=== PATIENT | female | born 1960 | race Caucasian/White ===

== ENCOUNTER → 2022-08-15 | Outpatient (CLI) | payer OTHER ==
--- NOTE | 2022-08-20 08:11 | MM ---
Reason for Exam: Screening (asymptomatic). Last mammogram was performed 5 year(s) and 2 month(s) ago. Patient History: Menarche at age 11. First Full-Term at age 25. Left ovary removed at age 30. Right ovary removed at age 30. Hysterectomy at age 30. Risk Values: Olive 5 year model risk: 1.8%. NCI Lifetime model risk: 7.2%. Prior Study Comparison: 08/31/2015 Bilateral MG diagnostic mammo w CAD MIGUEL - 2, [place]. 06/03/2017 Bilateral MG 3D screening mammo w/cad, [place]. Tissue Density: The breast tissue is heterogeneously dense. This may lower the sensitivity of mammography. Findings: Analyzed By CAD. There is no suspicious group of microcalcifications or new suspicious mass in either breast. Overall Assessment: Benign, BI-RAD 2 Management: Screening Mammogram of both breasts in 1 year. A clinical breast exam by your physician is recommended on an annual basis and results should be correlated with mammographic findings. Electronically signed and approved by: Osvaldo Otto M.D. Radiologis
== END | disposition home or self-care (01) ==
LOC: RADMAMWWP 07:21
PROVIDERS: ATTEND Family Medicine
DX: Z12.31 Encounter for screening mammogram for malignant neoplasm of breast (principal)
CPT/HCPCS: 77063; 77067

== ENCOUNTER → 2023-03-06 | Outpatient (CLI) | payer MEDICARE, OTHER ==
--- NOTE | 2023-03-06 11:59 | MR ---
EXAMINATION TYPE: MR lumbar spine wo con DATE OF EXAM: 03/06/2023 COMPARISON: None HISTORY: Lower back pain, LLE radiculopathy. TECHNIQUE: Multiplanar, multisequence images of the lumbar spine were acquired without IV contrast. FINDINGS: Lumbar segments are intact. No paraspinal masses are identified. Conus medullaris has a normal appe arance. Prominent right extrarenal pelvis. T12-L1: No herniation, protrusion or disc bulging. No canal stenosis is present. Foramina are paten t bilaterally. L1-L2: Tiny right central disc protrusion without significant effacement of the anterior thecal sac. No central canal stenosis. No neural foraminal stenosis. L2-L3: Tiny right central and left central disc protrusions without significant effacement of the ant erior thecal sac. No central canal stenosis. Mild left neural foramina stenosis. The right neural for amen is patent. L3-L4: No disc herniation or disc bulge. Ligament of flavum buckling with bilateral facet arthropathy contribute to minimal central canal stenosis. The neural foramina are patent bilaterally. L4-L5: Minimal grade 1 anterolisthesis of L4 on L5. Broad-based disc bulge with ligamentum flavum buc gill and bilateral facet arthropathy contributing to mild central canal stenosis. Mild bilateral michelle ral foraminal stenosis. L5-S1: Broad-based disc bulge with mild effacement of the intrathecal sac. Bilateral facet arthropath y and ligamentum flavum buckling. There is mild central canal stenosis. Mild bilateral neural foramin al stenosis. IMPRESSION: 1. Mild multilevel degenerative disease and facet arthropathy as described above. This is most pronou nced at L4-L5 and L5-S1. 2. Minimal grade 1 anterolisthesis L4 on L5.
== END | disposition home or self-care (01) ==
LOC: RADMRIMAIN 11:01
PROVIDERS: ATTEND Orthopaedic Surgery
DX: M47.26 Other spondylosis with radiculopathy, lumbar region (principal); M43.16 Spondylolisthesis, lumbar region
CPT/HCPCS: 72148

== ENCOUNTER → 2023-03-27 | Outpatient (CLI) | payer MEDICARE, OTHER ==
[2023-03-27 08:33] VITALS: BP 122/76; PULSE 65; RESP 15; TEMP 98.2
--- NOTE | 2023-03-27 14:49 | P.PAINPG ---
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 presents today w severe and chronic L LBP secondary to L Sacroiliitis for evaluation. Pt states pain level is provoked at 7 /10 in intensity, constant, localized in the L lower lumbar spine, achy, burning in character w shooting pain towards the L inner thigh. Pain is provoked by laying supine. Pain is alleviated by medications (Ibu), PT x 4 wks in Jan 2023, chiropractic treatments once every 2-3 mo x 1 yr which she is currently in, repositioning and rest. Oswestry axial pain score at 17. PMH: OA, GERD, Hyperlipidemia PSH: DENIES SH: Negative x3 FH: Non contributory All: See list Meds: See list REVIEW OF ORGAN SYSTEMS: CONSTITUTIONAL: No fevers or chills. No recent weight loss. NEUROLOGICAL: + numbness and tingling along the distal extremities. No seizure disorders or headaches. MUSCULOSKELETAL: + pain PSYCHIATRIC: Denies current depression or suicidal thoughts. Physical Examinations : Constitutional : Cooperative , not in acute distress . Neurologic : Cranial nerve II to XII intact. No focal neurological deficits. Psychiatric : alert & oriented x 3. Matching mood & appropriate affect. Judgment & insight intact. Musculoskeletal : Cervical Spine Motor strength in the deltoid and biceps: Normal right side. Normal Left side Motor strength biceps and the wrist extensors: Normal right side . Normal left side Motor strength in the triceps muscle: Normal right side. Normal left side Deep tendon reflexes: Normal at the biceps. Normal at Brachioradialis. Normal at triceps Vertebral body tenderness to deep palpation over Cervical facet loading test: positive bilaterally Spurling test: positive bilaterally Neck distraction test: positive bilaterally Giana sign: positive bilaterally Lumbar spine Motor strength lower extremities ,thigh and legs 5/5 Right side , 5/5 Left side Deep tendon reflexes : Normal Knee Jerk. Normal Ankle Jerk Vertebral body tenderness over He Test positive Lumbar facet Loading Test: positive Right / positive Left Range of motion of the lumbar spine Flexion 30 degrees, extension 10 degrees Straight Leg Raise test: Left/ Right positive at degree Mark test: positive right / positive left. Severe tenderness over the Sacroiliac joint on the Right / Left sides Gaenslen test: positive bilaterally Seated flexion test: positive bilaterally. Sacral spine : Severe tenderness over the Sacroiliac joint: right side / left side Range of motion: Flexion of the lumbar spine <60 degrees Range of motion: Extension of the lumbar spine <20 degrees Gaenslen's Test positive on L Mark test: positive right side / left side Thigh Thrust Test L positive Sacral Thrust Test Imaging: MRI noncontrast of the lumbar spine from 03/06/23 reviewed Assessment/ Plan : BL Sacroiliitis Recommendation of L SI injection. May need a series for optimal pain relief. Risks, benefits of procedure discussed and patient verbalized understanding. Admits to aspirin or anti- coagulant use or medical history of diabetes. Protocol for discontinuation/ continuation of medications kwasi procedure discussed. Minimal anesthesia provided, if clinically indicated, consisting of Versed and Fentanyl. All questions answered. I have spent greater than 30 minutes on patient care today. Dr Monae was available by phone for the evaluation of this patient. The time was used to review the medical records including relevant urine studies and Prescription history (MAPs), review of the available imaging, evaluation and examination of the patient, coordination of care with the medical staff and if applicable referring physicians, as well as creation of the medical record Controlled Substance Measures - Controlled Substance Measures Is patient prescribed a controlled substance at discharge?: No
== END ==
LOC: PNWHC3 07:38
PROVIDERS: ATTEND Specialist
DX: M46.1 Sacroiliitis, not elsewhere classified (principal); M54.50 Low back pain, unspecified; M47.26 Other spondylosis with radiculopathy, lumbar region; M19.90 Unspecified osteoarthritis, unspecified site; K21.9 Gastro-esophageal reflux disease without esophagitis; E78.5 Hyperlipidemia, unspecified
CPT/HCPCS: 99211

== ENCOUNTER 2023-04-15 07:31 | Day surgery (SDC) | payer MEDICARE, OTHER ==
[~2023-04-15 07:31] MED LIST: LACTATED RINGERS 1,000 ML IV SCH
[2023-04-15 07:55] VITALS: TEMP 97.2
[2023-04-15] MEDS ORDERED: ROPIVACAINE 5MG/ML 20ML VIAL ONE (08:24)
[2023-04-15] MEDS ORDERED: methylPREDNISolone ACETATE 40 MG/ML 1 ML VIAL ONE (08:24)
[2023-04-15] MEDS ORDERED: IOPAMIDOL M200 10 ML VIAL ONE (08:24)
--- NOTE | 2023-04-15 08:31 | P.PCN ---
Date of Procedure: 04/15/23 Procedure(s) Performed: Procedure= Left sacroiliac joints steroid injection under fluoroscopy guidance (fluoroscopy image stored on file in the radiology Department ) Preoperative diagnosis= 1-sacroiliitis 2-lumbar degenerative disc disease 3- lumbar facet arthropathy Postoperative diagnosis=Same as preop Diagnosis . Complication = none Condition= stable Anesthesia= local anesthesia with ropivacaine 0.5% 2 ml only Indication for the procedure= patient complaining of low back pain , examination was positive for severe tenderness over the sacroiliac joints bilaterally and patient diagnosed with sacroiliitis, for this reason she was good candidate for sacroiliac joint steroid injection. Description of the procedure= procedure risk and benefits discussed with the patient, including but not limited, risk of infection and bleeding, and ALLERGIC reaction to the medication and not complete pain relief and patient agreed with the preceding patient taken to the operating room, placed in prone position or standard monitors applied to the patient then after induction of anesthesia back prepped with chlorhexidine 3 times , Then the left sacroiliac joint steroid injection done under strict sterile technique local infiltration of the skin and subcu interstitial at the location of the left sacroiliac joint then a 22-gauge Quincke Needle advanced slowly under fluoroscopy time placed in the left sacroiliac joint, needle placement confirmed with AP and oblique and lateral view then after appropriate needle placement confirmed, with the AP and oblique and lateral then after negative aspiration Isovue 200 1 mL injected showed arthropathy of the left sacroiliac joint, and after negative aspiration 0.5% Ropivacaine 2 mL and 40 mg of Depo- Medrol injected in the left sacroiliac joint after negative aspiration patient tolerated the procedure well that any complications and she will follow up in clinic 3 weeks
[2023-04-15 08:51] VITALS: BP 115/74; PULSE 59; RESP 16
--- NOTE | 2023-04-15 20:22 | FL ---
EXAMINATION TYPE: FL guided pain mgmt statistic DATE OF EXAM: 04/15/2023 HISTORY: Fluoroscopy time Total dose area product (DAP) in uGy*m?, mGy*cm? (or similar): 0.39049 IMPRESSION: 1. Fluoroscopy time.
== END 2023-04-15 08:57 | disposition home or self-care (01) ==
LOC: ORPAIN 07:31
PROVIDERS: ATTEND Specialist
DX: M46.1 Sacroiliitis, not elsewhere classified (principal); M51.36 Other intervertebral disc degeneration, lumbar region; M47.816 Spondylosis without myelopathy or radiculopathy, lumbar region; Z88.2 Allergy status to sulfonamides
CPT/HCPCS: J1030; Q9966; J2795; G0260; 27096

== ENCOUNTER → 2023-05-08 | Outpatient (CLI) | payer MEDICARE, OTHER ==
[2023-05-08 08:38] VITALS: BP 128/69; PULSE 79; RESP 15; TEMP 98.2
--- NOTE | 2023-05-08 14:36 | P.PAINPG ---
Objective - Vital Signs Vital signs: Intake & Output 05/07/23 05/08/23 05/08/23 18:59 06:59 18:59 Weight 75.75 kg PQRS Measure Charge Sheet Comment: HISTORY OF PRESENT ILLNESS: 63 yr old female w at side presents today w severe and chronic L LBP secondary to DDD, spondylosis and facet arthropathy without myelopathy, L Sacroiliitis for evaluation. Pt states she experienced 10% pain relief s/p L SI procedure. Pt states pain level is provoked at 7 /10 in intensity, constant, localized in the L lower lumbar spine, achy, burning in character w shooting pain towards the L knee and L foot. Pain is provoked by walking/ standing for periods of 15m or more. Pain is alleviated by medications, PT x 4 wks in Jan 2023, chiropractic treatments once every 2-3 mo x 1 yr which she is currently in, repositioning and rest. Oswestry axial pain score at 18. Interventional procedures include L SI x1 Medications include Ibu REVIEW OF ORGAN SYSTEMS: CONSTITUTIONAL: No fevers or chills. No recent weight loss. NEUROLOGICAL: + numbness and tingling along the distal extremities. No seizure disorders or headaches. MUSCULOSKELETAL: + pain PSYCHIATRIC: Denies current depression or suicidal thoughts. Physical Examinations : Constitutional : Cooperative , not in acute distress . Neurologic : Cranial nerve II to XII intact. No focal neurological deficits. Psychiatric : alert & oriented x 3. Matching mood & appropriate affect. Judgment & insight intact. Musculoskeletal : Cervical Spine Motor strength in the deltoid and biceps: Normal right side. Normal Left side Motor strength biceps and the wrist extensors: Normal right side . Normal left side Motor strength in the triceps muscle: Normal right side. Normal left side Deep tendon reflexes: Normal at the biceps. Normal at Brachioradialis. Normal at triceps Vertebral body tenderness to deep palpation over Cervical facet loading test: positive bilaterally Spurling test: positive bilaterally Neck distraction test: positive b ilaterally Giana sign: positive bilaterally Lumbar spine Motor strength lower extremities ,thigh and legs 5/5 Right side , 5/5 Left side Deep tendon reflexes : Normal Knee Jerk. Normal Ankle Jerk Vertebral body tenderness over L5 He Test positive Lumbar facet Loading Test: positive Right / positive Left Range of motion of the lumbar spine Flexion 30 degrees, extension 10 degrees Straight Leg Raise test: Left/ Right positive at 35 degrees Mark test: positive right / positive left. Severe tenderness over the Sacroiliac joint on the Right / Left sides Gaenslen test: positive bilaterally Seated flexion test: positive bilaterally. Sacral spine : Severe tenderness over the Sacroiliac joint: right side / left side Range of motion: Flexion of the lumbar spine <60 degrees Range of motion: Extension of the lumbar spine <20 degrees Gaenslen's Test positive on L Amrk test: positive right side / left side Thigh Thrust Test L positive Sacral Thrust Test Imaging: MRI noncontrast of the lumbar spine from 03/06/23 reviewed Assessment/ Plan : L Sacroiliitis, Lumbar DDD Recommendation of L TFESI L5-S1 #1. May need a series for optimal pain relief. Risks, benefits of procedure discussed and patient verbalized understanding. Admits to aspirin or anti- coagulant use or medical history of diabetes. Protocol for discontinuation/ continuation of medications kwasi procedure discussed. Minimal anesthesia provided, if clinically indicated, consisting of Versed and Fentanyl. All questions answered. I have spent greater than 30 minutes on patient care today. Dr Monae was available by phone for the evaluation of this patient. The time was used to review the medical records including relevant urine studies and Prescription history (MAPs), review of the available imaging, evaluation and examination of the patient, coordination of care with the medical staff and if applicable referring physicians, as well as creation of the medical record PQRS Narrative: Hx Alcohol Use (MH) No Home Medications: Ambulatory Orders Atorvastatin [Lipitor] 20 mg PO DAILY 04/11/23 Cholecalciferol (Vitamin D3) [Vitamin D3 (125 MCG = 5,000 IU)] 125 mcg PO DAILY 04/11/23 Ibuprofen [Motrin Ib] 400 - 600 mg PO DIRECTED PRN 04/11/23 Omeprazole 20 mg PO DAILY 04/11/23 Unk Coq10 1 tab PO DAILY 04/11/23 Unk Fish Oil 800mg 1 tab PO BID 04/11/23 Controlled Substance Measures - Controlled Substance Measures Is patient prescribed a controlled substance at discharge?: No
== END ==
LOC: PNWHC3 07:49
PROVIDERS: ATTEND Specialist
DX: M46.1 Sacroiliitis, not elsewhere classified (principal); M51.36 Other intervertebral disc degeneration, lumbar region; Z88.2 Allergy status to sulfonamides
CPT/HCPCS: 99211

== ENCOUNTER 2023-06-10 11:12 | Day surgery (SDC) | payer MEDICARE, OTHER ==
[2023-06-05 11:34] VITALS: BMI 28.9
[2023-06-10 11:55] VITALS: TEMP 97.7
[2023-06-10] MEDS ORDERED: ROPIVACAINE 5MG/ML 20ML VIAL ONE (12:06)
[2023-06-10] MEDS ORDERED: IOPAMIDOL M200 10 ML VIAL ONE (12:06)
[2023-06-10] MEDS ORDERED: DEXAMETHASONE SOD PHOSPHATE 10 MG/ML 1 ML VIAL ONE (12:06)
--- NOTE | 2023-06-10 12:31 | P.PCN ---
Date of Procedure: 06/10/23 Description of Procedure: PREOPERATIVE DIAGNOSIS: 1-Lumbar radiculopathy . 2-lumbar degenerative disc disease. 3-lumbar spondylosis with lumbar facet arthropathy without myelopathy POSTOPERATIVE DIAGNOSIS: 1-lumbar radiculopathy. 2-lumbar degenerative disc disease. 3-lumbar spondylosis with facet arthropathy without myelopathy PROCEDURE 1. Transforaminal epidural steroid injection under fluoroscopic guidance at left L4-5 level. (Fluoroscopy images stored on file in the radiology Department ) 2. Lumbar epidurogram . ANESTHESIA: Local with 1% lidocaine 3 ml. EBL: Minimal PROCEDURE INDICATION: The patient with low back pain and radiculopathy symptoms unresponsive to conservative treatment. PROCEDURE DESCRIPTION / TECHNIQUE: The patient was seen and identified in the preoperative area. Risks, benefits, complications, and alternatives were discussed with the patient. The patient agreed to proceed with the procedure and signed the consent. IV was started, and vital signs were stable. Patient was taken to the OR and time out was completed. The patient was placed in the prone position on procedure table and a pillow was placed under the abdomen to reduce lumbar lordosis. The lumbosacral area was prepped and draped in the usual sterile fashion. Critical pause was taken. Vital signs were closely monitored during the procedure. Using oblique fluoroscopy, the chin of the `Gurindery dog at L4-5 level was identified, and the skin and deeper tissues just below was localized with 1% lidocaine. Subsequently, a 22-gauge 3.5-inch spinal needle was advanced under a tunneled view fluoroscopic guidance just underneath the chin of the ``Govind dog at the right/left L4-5 Under lateral fluoroscopy, the needle was then advanced to the posterior border of the interforaminal space. The spinal needle was in the posterior and inferior half L4-L5 intervertebral foramen in crosstable lateral view of the fluoroscope After negative aspiration of CSF and blood and with no paresthesias,4 mL Isovue 200 contrast dye was injected excellent epidurogram and outlining of the nerve root Subsequently, 3 mL of block solution containing 15 mg Decadron mixed with 1-1/2 mL of of 0.9% normal saline PF was injected. Needle was removed At the end of the procedure, skin was cleansed, and bandages were applied. COMPLICATIONS:none DISPOSITION / PLANS: The patient was placed in a supine position and transferred to the recovery area in a stable condition for observation. There was no evidence of lower extremity motor or sensory deficit after the procedure. Patient was discharged from the recovery room after meeting discharge criteria. Home discharge instructions were given to the patient by the staff. The patient was reexamined prior to discharge.
[2023-06-10 12:46] VITALS: BP 123/75; PULSE 58; RESP 16
== END 2023-06-10 12:48 | disposition home or self-care (01) ==
LOC: ORPAIN 11:12
PROVIDERS: ATTEND Pain Medicine Interventional Pain Medicine
DX: M51.16 Intervertebral disc disorders with radiculopathy, lumbar region (principal); M47.26 Other spondylosis with radiculopathy, lumbar region; J44.9 Chronic obstructive pulmonary disease, unspecified; Z88.2 Allergy status to sulfonamides; Z95.0 Presence of cardiac pacemaker; Z86.14 Personal history of Methicillin resistant Staphylococcus aureus infection; Z79.899 Other long term (current) drug therapy
CPT/HCPCS: 64483; J1100; Q9966; J2795

== ENCOUNTER → 2023-07-10 | Outpatient (CLI) | payer MEDICARE, OTHER ==
[2023-07-10 08:21] VITALS: BP 128/62; PULSE 85; RESP 15; TEMP 98.6
--- NOTE | 2023-07-10 15:04 | P.PAINPG ---
PQRS Measure Charge Sheet Comment: HISTORY OF PRESENT ILLNESS: A 63 yr old female w at side presents today w severe and chronic L LBP secondary to DDD, spondylosis and facet arthropathy without myelopathy, L Sacroiliitis for evaluation s/p L TFESI L5-S1 #1. Pt states she experienced 90% pain relief s/p procedure. Pt states pain level is provoked at 1 /10 in intensity, constant, localized in the L lower lumbar spine, predominantly axial, achy, burning in character w occasional shooting pain towards the L knee and L foot. Pain is provoked by walking/ standing for periods of 15m or more. Pain is alleviated by medications, PT x 4 wks in Jan 2023, chiropractic treatments once every 2-3 mo x 1 yr which she is currently in,alternating heat & ice, repositioning and rest. Oswestry axial pain score at 14. Interventional procedures include L SI x1, L TFESI L5-S1 x1 Medications include Ibu REVIEW OF ORGAN SYSTEMS: CONSTITUTIONAL: No fevers or chills. No recent weight loss. NEUROLOGICAL: + numbness and tingling along the distal extremities. No seizure disorders or headaches. MUSCULOSKELETAL: + pain PSYCHIATRIC: Denies current depression or suicidal thoughts. Physical Examinations : Constitutional : Cooperative , not in acute distress . Neurologic : Cranial nerve II to XII intact. No focal neurological deficits. Psychiatric : alert & oriented x 3. Matching mood & appropriate affect. Judgment & insight intact. Musculoskeletal : Cervical Spine Motor strength in the deltoid and biceps: Normal right side. Normal Left side Motor strength biceps and the wrist extensors: Normal right side . Normal left side Motor strength in the triceps muscle: Normal right side. Normal left side Deep tendon reflexes: Normal at the biceps. Normal at Brachioradialis. Normal at triceps Vertebral body tenderness to deep palpation over Cervical facet loading test: positive bilaterally Spurling test: positive bilaterally Neck distraction test: positive bilaterally Giana sign: positive bilaterally Lumbar spine Motor strength lower extremities ,thigh and legs 5/5 Right side , 5/5 Left side Deep tendon reflexes : Normal Knee Jerk. Normal Ankle Jerk Vertebral body tenderness over L5 He Test positive Lumbar facet Loading Test: positive Right / positive Left Range of motion of the lumbar spine Flexion 30 degrees, extension 10 degrees Straight Leg Raise test: Left/ Right positive at 35 degrees Mark test: positive right / positive left. Severe tenderness over the Sacroiliac joint on the Right / Left sides Gaenslen test: positive bilaterally Seated flexion test: positive bilaterally. Sacral spine : Severe tenderness over the Sacroiliac joint: right side / left side Range of motion: Flexion of the lumbar spine <60 degrees Range of motion: Extension of the lumbar spine <20 degrees Gaenslen's Test positive on L Mark test: positive right side / left side Thigh Thrust Test L positive Sacral Thrust Test Imaging: MRI noncontrast of the lumbar spine from 03/06/23 reviewed Assessment/ Plan : L Sacroiliitis, Lumbar DDD Will manage residual pain and may RTC on an as needed basis. All questions answered. I have spent greater than 30 minutes on patient care today. Dr Monae was available by phone for the evaluation of this patient. The time was used to review the medical records including relevant urine studies and Prescription history (MAPs), review of the available imaging, evaluation and examination of the patient, coordination of care with the medical staff and if applicable ref erring physicians, as well as creation of the medical record - Pain Location Bilateral Lower Back Pharmacological Interventions: Epidural PQRS Narrative: Hx Alcohol Use (MH) No Home Medications: Ambulatory Orders Atorvastatin [Lipitor] 20 mg PO DAILY 04/11/23 Cholecalciferol (Vitamin D3) [Vitamin D3 (125 MCG = 5,000 IU)] 125 mcg PO DAILY 04/11/23 Ibuprofen [Motrin Ib] 400 - 600 mg PO DIRECTED PRN 04/11/23 Omeprazole 20 mg PO DAILY 04/11/23 Unk Coq10 1 tab PO DAILY 04/11/23 Unk Fish Oil 800mg 1 tab PO BID 04/11/23 Benzonatate [Tessalon Perles] 200 mg PO Q8HR PRN 05/28/23 Pseudoephedrine 12Hr [Sudafed 12 Hour] 1 tab PO BID PRN 05/28/23 diphenhydrAMINE HCL [Benadryl] 25 mg PO HS PRN 05/28/23 Controlled Substance Measures - Controlled Substance Measures Is patient prescribed a controlled substance at discharge?: No
== END ==
LOC: PNWHC3 07:49
PROVIDERS: ATTEND Specialist
DX: M51.36 Other intervertebral disc degeneration, lumbar region (principal); M47.816 Spondylosis without myelopathy or radiculopathy, lumbar region; M46.1 Sacroiliitis, not elsewhere classified; Z88.2 Allergy status to sulfonamides
CPT/HCPCS: 99211

== ENCOUNTER → 2023-09-17 | Outpatient (CLI) | payer MEDICARE, OTHER ==
--- NOTE | 2023-09-17 16:09 | BD ---
EXAMINATION TYPE: Axial Bone Density DATE OF EXAM: 09/17/2023 CLINICAL HISTORY: 63 years old Female. ICD-10 CODE: Z78.0 AYSMPTOMATIC MENOPAUSAL Height: 62 Weight: 155.6 FRAX RISK QUESTIONS: Alcohol (3 or more units per day): no Family History (Parent hip fracture): mother Glucocorticoids (More than 3mos): no History of Fracture in Adulthood: no Secondary Osteoporosis: 1. Type 1 Diabetes: no 2. Hyperthyroidism: no 3. Menopause before 45: age 32 4. Malnutrition: no 5. Chronic liver disease: no Rheumatoid Arthritis: no Current Tobacco Use: no RISK FACTORS HISTORY OF: Hip Fracture (Right/Left): no Spine Fracture: no History of Wrist Fracture: no Surgery to Spine/Hip(right/left)/Wrist (right/left): no MEDICATIONS: Thyroid Medications: no Osteoporosis Medications: no EXAM MEASUREMENTS: Bone mineral densitometry was performed using the enrich-in System. Bone mineral density as measured about the Lumbar spine is: ----- L1-L4(G/cm2): 1.080 T Score Values are as follows: ----- L1: -1.1 ----- L2: -1.2 ----- L3: -0.1 ----- L4: -1.2 ----- L1-L4: -0.8 Z Score Values are as follows: ----- L1: 0.3 ----- L2: 0.2 ----- L3: 1.3 ----- L4: 0.2 ----- L1-L4: 0.6 Baseline Study Bone mineral density about the R hip (g/cm2): 1.048 Bone mineral density about the L hip (g/cm2): 0.981 T Score values are as follows: -----R Neck: -0.5 -----L Neck: -1.2 -----R Total: 0.3 -----L Total: -0.2 Z Score values are as follows: -----R Neck: 0.8 -----L Neck: 0.2 -----R Total: 1.4 -----L Total: 0.9 Baseline Study FRAX%s: The graph provided illustrates a 15.7% chance for a major osteoporotic fx and a 0.8% chance f or the hips probability for fx in 10 years time. IMPRESSION: Osteopenia (T Score between -2.5 and -1). There is slightly increased risk of fracture and the patient may be considered for treatment. Re-Screen 2-5 years. NOTE: T-SCORE=SD OF THE YOUNG ADULT MEAN.
--- NOTE | 2023-09-18 20:51 | MM ---
Reason for Exam: Screening (asymptomatic). Last mammogram was performed 1 year(s) and 1 month(s) ago. Patient History: Menarche at age 11. First Full-Term at age 25. Left ovary removed at age 30. Right ovary removed at age 30. Hysterectomy at age 30. Risk Values: Olive 5 year model risk: 1.8%. NCI Lifetime model risk: 6.9%. Prior Study Comparison: 08/31/2015 Bilateral MG diagnostic mammo w CAD MIGUEL - 2, [place]. 06/03/2017 Bilateral MG 3D screening mammo w/cad, [place]. 08/15/2022 Bilateral MG 3D screening mammo w/cad, [facility]. Tissue Density: The breast tissue is heterogeneously dense. This may lower the sensitivity of mammography. Findings: Analyzed By CAD. Chronic nodularity on the left. On the right, focal asymmetry approximately 4:00 anterior depth is more defined. Further evaluation is recommended. On the left, there is possible distortion at approximately 3:00 position middle depth for which further evaluation is recommended. Overall Assessment: Incomplete: need additional imaging evaluation, BI-RAD 0 Management: Diagnostic Mammogram of both breasts. Diagnostic Breast Ultrasound of both breasts. Targeted ultrasound right breast 2-5 o'clock and targeted ultrasound left breast 1-[address] [facility] will attempt to contact patient to return for supplemental views and ultrasound if indicated. Electronically signed and approved by: Kane Sinclair M.D. Radiologist
== END | disposition home or self-care (01) ==
LOC: RADMAMWWP 07:26
PROVIDERS: ATTEND Family Medicine
DX: Z12.31 Encounter for screening mammogram for malignant neoplasm of breast (principal); M85.89 Other specified disorders of bone density and structure, multiple sites; Z78.0 Asymptomatic menopausal state
CPT/HCPCS: 77063; 77067; 77080

== ENCOUNTER → 2023-09-23 | Outpatient (CLI) | payer MEDICARE, OTHER ==
--- NOTE | 2023-09-23 09:06 | USB ---
Reason for Exam: Additional evaluation requested from abnormal screening. Patient History: Menarche at age 11. First Full-Term at age 25. Left ovary removed at age 30. Right ovary removed at age 30. Hysterectomy at age 30. Risk Values: Olive 5 year model risk: 1.8%. NCI Lifetime model risk: 6.9%. Technique: Method: Targeted. Prior Study Comparison: 06/03/2017 Bilateral MG 3D screening mammo w/cad, [place]. 08/15/2022 Bilateral MG 3D screening mammo w/cad, [facility]. 09/17/2023 Bilateral MG 3D screening mammo w/cad, [facility]. Findings: The lateral section of the breast of the left breast, the medial section of the breast of the right breast, the axilla of both breasts and the retroareolar of both breasts were scanned. Targeted ultrasound right breast 1:00 to 6:00 including scanning of the subareolar region and axilla. Scattered dense tissue is present throughout. There is a cyst cluster at 4:00 measuring 7 x 7 x 4 mm. Additionally, there is a 5 mm benign cyst in the 1:00 position. No other solid or cystic lesion or axillary lymphadenopathy. Targeted ultrasound left breast 1:00 to 4:00 position including scanning of the subareolar region and axilla. At the 2:00 position, 5 cm from the nipple, there are 2 adjacent cysts measuring up to 1.1 cm, one of which contains some internal debris. At the 4:00 position, 5 cm from the nipple, there is a benign 5 mm cyst. No other solid or cystic lesion or axillary adenopathy. Overall Assessment: Probably benign, BI-RAD 3 Management: Diagnostic Mammogram of both breasts in 6 months. A clinical breast exam by your physician is recommended on an annual basis and results should be correlated with mammographic findings. This exam should not preclude additional follow-up of suspicious palpable abnormalities. Results were given to the patient verbally at the time of exam. Electronically signed and approved by: Kane Sinclair M.D. Radiologist
--- NOTE | 2023-09-23 12:57 | MM ---
Reason for Exam: Additional evaluation requested from abnormal screening. Last screening mammogram was performed less than 1 month ago. Patient History: Menarche at age 11. First Full-Term at age 25. Left ovary removed at age 30. Right ovary removed at age 30. Hysterectomy at age 30. Risk Values: Olive 5 year model risk: 1.8%. NCI Lifetime model risk: 6.9%. Prior Study Comparison: 08/15/2022 Bilateral MG 3D screening mammo w/cad, [facility]. 09/17/2023 Bilateral MG 3D screening mammo w/cad, [facility]. Tissue Density: The breast tissue is heterogeneously dense. This may lower the sensitivity of mammography. Findings: Analyzed By CAD. In the right breast, 3.3 cm focal asymmetry lower inner quadrant persists on additional views. This may represent a prominent island of fibroglandular tissue/global asymmetry but further ultrasound evaluation is recommended. In addition, a 9 mm nodular asymmetry probably located at the 2:00 position becomes more apparent. Further ultrasound evaluation recommended. In the left breast, focal asymmetry approximately 2:00 position have a somewhat nodular appearance on the lateral view measuring 1.2 cm. Overall Assessment: Incomplete: need additional imaging evaluation, BI-RAD 0 Management: Diagnostic Breast Ultrasound of both breasts. Right breast 1-6 o'clock and left breast 1-4 o'clock. Electronically signed and approved by: Kane Sinclair M.D. Radiologist
== END | disposition home or self-care (01) ==
LOC: RADMAMWWP 07:28
PROVIDERS: ATTEND Family Medicine
DX: R92.333 Mammographic heterogeneous density, bilateral breasts (principal)
CPT/HCPCS: 77066; 76642; G0279; 77062

== ENCOUNTER → 2023-10-15 | Outpatient (CLI) | payer MEDICARE, OTHER ==
[2023-10-15 11:01] VITALS: BP 128/85; PULSE 72; RESP 15; TEMP 98.6
--- NOTE | 2023-10-15 13:51 | P.PAINPG ---
PQRS Measure Charge Sheet Comment: HISTORY OF PRESENT ILLNESS: A 63 yr old female w at side presents today w severe and chronic L LBP secondary to DDD, spondylosis and facet arthropathy without myelopathy, L Sacroiliitis for evaluation. Pt states pain level is provoked at 8 /10 in intensity, intermittent, localized in the L lower lumbar spine, predominantly axial, achy, burning in character w occasional shooting pain towards the L knee and L foot. Pain is provoked by walking/ standing for periods of 15m or more. Pain is alleviated by medications, PT x 4 wks in Jan 2023, chiropractic treatments once every 2-3 mo x 1 yr which she is currently in, alternating heat & ice, repositioning and rest. Oswestry axial pain score at 17. Interventional procedures include L SI x1, L TFESI L5-S1 x1 Medications include Ibu REVIEW OF ORGAN SYSTEMS: CONSTITUTIONAL: No fevers or chills. No recent weight loss. NEUROLOGICAL: + numbness and tingling along the distal extremities. No seizure disorders or headaches. MUSCULOSKELETAL: + pain PSYCHIATRIC: Denies current depression or suicidal thoughts. Physical Examinations : Constitutional : Cooperative , not in acute distress . Neurologic : Cranial nerve II to XII intact. No focal neurological deficits. Psychiatric : alert & oriented x 3. Matching mood & appropriate affect. Judgment & insight intact. Musculoskeletal : Cervical Spine Motor strength in the deltoid and biceps: Normal right side. Normal Left side Motor strength biceps and the wrist extensors: Normal right side . Normal left side Motor strength in the triceps muscle: Normal right side. Normal left side Deep tendon reflexes: Normal at the biceps. Normal at Brachioradialis. Normal at triceps Vertebral body tenderness to deep palpation over Cervical facet loading test: positive bilaterally Spurling test: positive bilaterally Neck distraction test: positive bilaterally Giana sign: positive bilaterally Lumbar spine Motor strength lower extremities ,thigh and legs 5/5 Right side , 5/5 Left side Deep tendon reflexes : Normal Knee Jerk. Normal Ankle Jerk Vertebral body tenderness over L5 He Test positive Lumbar facet Loading Test: positive Right / positive Left Range of motion of the lumbar spine Flexion 30 degrees, extension 10 degrees Straight Leg Raise test: Left/ Right positive at 35 degrees Mark test: positive right / positive left. Severe tenderness over the Sacroiliac joint on the Right / Left sides Gaenslen test: positive bilaterally Seated flexion test: positive bilaterally. Sacral spine : Severe tenderness over the Sacroiliac joint: right side / left side Range of motion: Flexion of the lumbar spine <60 degrees Range of motion: Extension of the lumbar spine <20 degrees Gaenslen's Test positive on L Mark test: positive right side / left side Thigh Thrust Test L positive Sacral Thrust Test Imaging: MRI noncontrast of the lumbar spine from 03/06/23 reviewed Assessment/ Plan : L Sacroiliitis, Lumbar DDD Recommendation of L TFESI L5-S1 #2. May need a series o f injections for optimal pain relief. Risks, benefits of procedure discussed and pt verbalized understanding. Protocol for discontinuation/ continuation of medications kwasi procedure discussed. All questions answered. I have spent greater than 30 minutes on patient care today. Dr Monae was available by phone for the evaluation of this patient. The time was used to review the medical records including relevant urine studies and Prescription history (MAPs), review of the available imaging, evaluation and examination of the patient, coordination of care with the medical staff and if applicable referring physicians, as well as creation of the medical record PQRS Narrative: Hx Alcohol Use (MH) No Home Medications: Ambulatory Orders Atorvastatin [Lipitor] 20 mg PO DAILY 04/11/23 Cholecalciferol (Vitamin D3) [Vitamin D3 (125 MCG = 5,000 IU)] 125 mcg PO DAILY 04/11/23 Ibuprofen [Motrin Ib] 400 - 600 mg PO DIRECTED PRN 04/11/23 Omeprazole 20 mg PO DAILY 04/11/23 Unk Coq10 1 tab PO DAILY 04/11/23 Unk Fish Oil 800mg 1 tab PO BID 04/11/23 Benzonatate [Tessalon Perles] 200 mg PO Q8HR PRN 05/28/23 Pseudoephedrine 12Hr [Sudafed 12 Hour] 1 tab PO BID PRN 05/28/23 diphenhydrAMINE HCL [Benadryl] 25 mg PO HS PRN 05/28/23 Controlled Substance Measures - Controlled Substance Measures Is patient prescribed a controlled substance at discharge?: No
== END ==
LOC: PNWHC3 08:18
PROVIDERS: ATTEND Specialist
DX: M51.36 Other intervertebral disc degeneration, lumbar region (principal); M46.1 Sacroiliitis, not elsewhere classified; Z88.2 Allergy status to sulfonamides
CPT/HCPCS: 99211

== ENCOUNTER 2023-10-23 07:26 | Day surgery (SDC) | payer MEDICARE, OTHER ==
[2023-10-20 14:33] VITALS: BMI 26.5
[2023-10-23] MEDS ORDERED: LACTATED RINGERS 1,000 ML IV SCH (07:46)
[2023-10-23 08:41] VITALS: TEMP 98
[2023-10-23] MEDS ORDERED: methylPREDNISolone ACETATE 80 MG/ML 1 ML VIAL ONE (08:55)
[2023-10-23] MEDS ORDERED: IOPAMIDOL M200 10 ML VIAL ONE (08:55)
--- NOTE | 2023-10-23 09:04 | P.PCN ---
Date of Procedure: 10/23/23 Procedure(s) Performed: PREOPERATIVE DIAGNOSIS: 1-Lumbar radiculopathy . 2-lumbar degenerative disc disease. 3-lumbar spondylosis with lumbar facet arthropathy without myelopathy POSTOPERATIVE DIAGNOSIS: 1-lumbar radiculopathy. 2-lumbar degenerative disc disease. 3-lumbar spondylosis with facet arthropathy without myelopathy PROCEDURE 1. Transforaminal epidural steroid injection under fluoroscopic guidance at left L5-S1 level. (Fluoroscopy images stored on file in the radiology Department ) 2. Lumbar epidurogram . ANESTHESIA: Local with 1% lidocaine 3 ml. EBL: Minimal PROCEDURE INDICATION: The patient with low back pain and radiculopathy symptoms unresponsive to conservative treatment. PROCEDURE DESCRIPTION / TECHNIQUE: The patient was seen and identified in the preoperative area. Risks, benefits, complications, and alternatives were discussed with the patient. The patient agreed to proceed with the procedure and signed the consent. IV was started, and vital signs were stable. Patient was taken to the OR and time out was completed. The patient was placed in the prone position on procedure table and a pillow was placed under the abdomen to reduce lumbar lordosis. The lumbosacral area was prepped and draped in the usual sterile fashion. Critical pause was taken. Vital signs were closely monitored during the procedure. Using oblique fluoroscopy, the chin of the ``Govind dog at left L5-S1 level was identified, and the skin and deeper tissues just below was localized with 1% lidocaine. Subsequently, a 22-gauge 3.5-inch spinal needle was advanced under a tunneled view fluoroscopic guidance just underneath the chin of the ``Govind dog at the left L5-S1 Under lateral fluoroscopy, the needle was then advanced to the posterior border of the interforaminal space. After negative aspiration of CSF and blood and with no paresthesias, 1 mL Isovue 200 contrast dye was injected excellent epidurogram and outlining of the nerve root Subsequently, 3 mL of block solution containing 60 mg Depo-Medrol and 2 mL of 0.9% normal saline PF was injected. Needle was removed . At the end of the procedure, skin was cleansed, and bandages were applied. COMPLICATIONS:none DISPOSITION / PLANS: The patient was placed in a supine position and transferred to the recovery area in a stable condition for observation. There was no evidence of lower extremity motor or sensory deficit after the procedure. Patient was discharged from the recovery room after meeting discharge criteria. Home discharge instructions were given to the patient by the staff. The patient was reexamined prior to discharge.
--- NOTE | 2023-10-23 09:31 | FL ---
EXAMINATION TYPE: FL guided pain mgmt statistic DATE OF EXAM: 10/23/2023 HISTORY: Fluoroscopy time Total dose area product (DAP) in uGy*m?, mGy*cm? (or similar): 0.14126 IMPRESSION: 1. Fluoroscopy time.
[2023-10-23 09:57] VITALS: BP 116/65; PULSE 60; RESP 20
== END 2023-10-23 09:26 | disposition home or self-care (01) ==
LOC: ORPAIN 07:26
PROVIDERS: ATTEND Specialist
DX: M51.16 Intervertebral disc disorders with radiculopathy, lumbar region (principal); M47.26 Other spondylosis with radiculopathy, lumbar region; Z79.1 Long term (current) use of non-steroidal anti-inflammatories (NSAID); Z88.2 Allergy status to sulfonamides
CPT/HCPCS: 64483; J1040; Q9966

== ENCOUNTER → 2023-11-10 | Outpatient (CLI) | payer MEDICARE, OTHER ==
[2023-11-10 09:07] VITALS: BP 115/74; PULSE 65; RESP 16
--- NOTE | 2023-11-10 13:56 | P.PAINPG ---
PQRS Measure Charge Sheet Comment: HISTORY OF PRESENT ILLNESS: A 63 yr old female w at side presents today w severe and chronic L LBP secondary to DDD, spondylosis and facet arthropathy without myelopathy, L Sacroiliitis for evaluation s/p L TFESI L5-S1 #2. Pt states she experienced 90% pain relief x 2 wks s/p procedure. Pt states pain level is provoked at 1 /10 in intensity, intermittent, localized in the L lower lumbar spine, predominantly axial, achy, burning in character w occasional shooting pain towards the L knee and L foot. Pain is provoked by walking/ standing for periods of 15m or more. Pain is alleviated by medications, PT x 4 wks in Jan 2023, chiropractic treatments once every 2-3 mo x 1 yr which she is currently in, alternating heat & ice, repositioning and rest. Oswestry axial pain score at 12. Interventional procedures include L SI x1, L TFESI L5-S1 x2 Medications include Ibu REVIEW OF ORGAN SYSTEMS: CONSTITUTIONAL: No fevers or chills. No recent weight loss. NEUROLOGICAL: + numbness and tingling along the distal extremities. No seizure disorders or headaches. MUSCULOSKELETAL: + pain PSYCHIATRIC: Denies current depression or suicidal thoughts. Physical Examinations : Constitutional : Cooperative , not in acute distress . Neurologic : Cranial nerve II to XII intact. No focal neurological deficits. Psychiatric : alert & oriented x 3. Matching mood & appropriate affect. Judgment & insight intact. Musculoskeletal : Cervical Spine Motor strength in the deltoid and biceps: Normal right side. Normal Left side Motor strength biceps and the wrist extensors: Normal right side . Normal left side Motor strength in the triceps muscle: Normal right side. Normal left side Deep tendon reflexes: Normal at the biceps. Normal at Brachioradialis. Normal at triceps Vertebral body tenderness to deep palpation over Cervical facet loading test: positive bilaterally Spurling test: positive bilaterally Neck distraction test: positive bilaterally Giana sign: positive bilaterally Lumbar spine Motor strength lower extremities ,thigh and legs 5/5 Right side , 5/5 Left side Deep tendon reflexes : Normal Knee Jerk. Normal Ankle Jerk Vertebral body tenderness over L5 He Test positive Lumbar facet Loading Test: positive Right / positive Left Range of motion of the lumbar spine Flexion 30 degrees, extension 10 degrees Straight Leg Raise test: Left/ Right positive at 35 degrees Mark test: positive right / positive left. Severe tenderness over the Sacroiliac joint on the Right / Left sides Gaenslen test: positive bilaterally Seated flexion test: positive bilaterally. Sacral spine : Severe tenderness over the Sacroiliac joint: right side / left side Range of motion: Flexion of the lumbar spine <60 degrees Range of motion: Extension of the lumbar spine <20 degrees Gaenslen's Test positive on L Mark test: positive right side / left side Thigh Thrust Test L positive Sacral Thrust Test Imaging: MRI noncontrast of the lumbar spine from 03/06/23 reviewed Assessment/ Plan : L Sacroiliitis, Lumbar DDD Will manage residual pain and may RTC on an as needed basis. All questions answered. I have spent greater than 30 minutes on patient care today. Dr Monae was available by phone for the evaluation of this patient. The time was used to review the medical records including relevant urine studies and Prescription history (MAPs), review of the available imaging, evaluation and examination of the patient, coordination of care with the medical staff and if applicable referring physicians, as well as creation of the medical record PQRS Narrative: Hx Alcohol Use (MH) No Home Medications: Ambulatory Orders Atorvastatin [Lipitor] 20 mg PO DAILY 04/11/23 Cholecalciferol (Vitamin D3) [Vitamin D3 (125 MCG = 5,000 IU)] 125 mcg PO DAILY 04/11/23 Ibuprofen [Motrin Ib] 400 - 600 mg PO DIRECTED PRN 04/11/23 Omeprazole 20 mg PO DAILY 04/11/23 Unk Coq10 1 tab PO DAILY 04/11/23 Unk Fish Oil 800mg 1 tab PO BID 04/11/23 diphenhydrAMINE HCL [Benadryl] 25 mg PO HS PRN 05/28/23 Alpha Lipoic Acid 600 mg PO DAILY 10/20/23 Turmeric/Turmeric Root Extract [Turmeric 450-50 mg Capsule] 1 each PO DAILY 10/20/23 Controlled Substance Measures - Controlled Substance Measures Is patient prescribed a controlled substance at discharge?: No
== END ==
LOC: PNWHC3 07:47
PROVIDERS: ATTEND Specialist
DX: M51.36 Other intervertebral disc degeneration, lumbar region (principal); M47.816 Spondylosis without myelopathy or radiculopathy, lumbar region; M46.1 Sacroiliitis, not elsewhere classified; Z88.2 Allergy status to sulfonamides
CPT/HCPCS: 99211

== ENCOUNTER → 2024-05-04 | Outpatient (CLI) | payer MEDICARE, OTHER ==
--- NOTE | 2024-05-04 13:57 | MM ---
Reason for Exam: Follow-up at short interval from prior study. Last screening mammogram was performed 8 month(s) ago. Patient History: Menarche at age 11. First Full-Term at age 25. Left ovary removed at age 30. Right ovary removed at age 30. Hysterectomy at age 30. Postmenopausal. Patient has history of breast feeding. Risk Values: Olive 5 year model risk: 1.9%. NCI Lifetime model risk: 6.7%. Prior Study Comparison: 08/31/2015 Bilateral MG diagnostic mammo w CAD [facility] - 2, [place]. 06/03/2017 Bilateral MG 3D screening mammo w/cad, [place]. 08/15/2022 Bilateral MG 3D screening mammo w/cad, [facility]. 09/17/2023 Bilateral MG 3D screening mammo w/cad, [facility]. 09/23/2023 Bilateral MG 3D work up w/cad [facility], [facility]. Tissue Density: The breasts are heterogeneously dense, which may obscure small masses. Findings: Analyzed By CAD. Stable benign-appearing bilateral calcifications noted. No evidence for gaseous mass or distortion. No skin thickening is identified. Overall Assessment: Benign, BI-RAD 2 Management: Screening Mammogram of both breasts in 1 year. . Results were given to the patient verbally at the time of exam. Patient should continue monthly self-breast exams. A clinical breast exam by your physician is recommended on an annual basis. This exam should not preclude additional follow-up of suspicious palpable abnormalities. Note on Olive scores and lifetime risk: 1. A Olive score greater than 3% is considered moderate risk. If this is the case, consider specialist referral to assess eligibility for a risk reducing agent. 2. If overall lifetime risk for the development of breast cancer is 20% or higher, the patient may qualify for future screening with alternating mammogram and breast MRI. [facility], , 05/04/2024 1:55 PM. Electronically signed and approved by: Osvaldo Otto M.D. Radiologis
== END | disposition home or self-care (01) ==
LOC: RADMAMWWP 07:59
PROVIDERS: ATTEND Family Medicine
DX: R92.8 Other abnormal and inconclusive findings on diagnostic imaging of breast
CPT/HCPCS: 77062; 77066

== ENCOUNTER → 2024-05-13 | Outpatient (CLI) | payer MEDICARE, OTHER ==
--- NOTE | 2024-05-14 01:51 | MR ---
EXAMINATION TYPE: MR knee LT wo con DATE OF EXAM: 05/13/2024 COMPARISON: NONE HISTORY: Chronic Left knee pain, Swelling, Worse in the last 3 weeks, TECHNIQUE: Multiplanar, multisequence images of the knee is performed without IV contrast. FINDINGS: MEDIAL MENISCUS: Subtle oblique signal posterior horn likely extends to the inferior articular surfac e. LATERAL MENISCUS: Anterior and posterior horns are intact without tear. CRUCIATE LIGAMENTS: The anterior and posterior cruciate ligaments are intact and unremarkable. COLLATERAL LIGAMENTS: The medial collateral ligament and lateral collateral ligament complex are inta ct and unremarkable. EXTENSOR MECHANISM: Visualized quadriceps and patellar tendons are intact. EFFUSION: Moderate size suprapatellar joint effusion. POPLITEAL CYST: Small to moderate-sized septated popliteal/pittman cyst. TRICOMPARTMENT SPACES: Moderate to severe narrowing patellofemoral compartment with mild spurring. Mi [id number] narrowing medial and lateral tibiofemoral compartments. CARTILAGE: Chondromalacia patella with areas of full-thickness cartilaginous loss along the posterior patellar pole. Cartilaginous loss medial tibiofemoral compartment. BONE MARROW SIGNAL: A few areas of increased T2 signal along the posterior patellar pole. Similar fin ding medial tibial plateau coronal image 16 from reference. OTHER: No additional significant abnormality is appreciated. IMPRESSION: 1. Tricompartment degenerative changes are present as detailed above with fairly severe findings mora llofemoral compartment noted. 2. At least intrasubstance a suspected full-thickness tear posterior horn medial meniscus. 3. Moderate-sized suprapatellar joint effusion. 4. Small to moderate-sized septated popliteal cyst. [facility], , 05/14/2024 1:49 AM
== END | disposition home or self-care (01) ==
LOC: RADMRIMAIN 16:04
PROVIDERS: ATTEND Family Medicine